=== PATIENT | male | born 1970 | race Caucasian/White ===

== ENCOUNTER 2023-09-10 06:51 | Day surgery (SDC) | payer BC, SELFPAY ==
[2023-09-06 10:16] LABS: Hematocrit 42.2 % (39.0-52.0); Hemoglobin 14.3 g/dL (13.0-18.0); Mean Corp Hgb Conc. 33.9 g/dL (33.0-37.0); Mean Corpuscular Hgb 30.9 pg (27.0-31.0); Mean Corpuscular Volume 91.1 fL (80.0-94.0); Mean Platelet Volume 11.7 fL (7.4-10.4); Platelet Count 209 10^3/uL (130-400); Red Blood Cell Count 4.63 10^6/uL (4.70-6.10); Red Cell Dist. Width 12.7 % (11.5-14.5)
[2023-09-06 11:03] LABS: Blood Urea Nitrogen 17 mg/dl (9-20); Calcium 9.2 mg/dl (8.4-10.2); Carbon Dioxide 30 mmol/L (22-30); Chloride 103 mmol/L (98-107); Glucose 87 mg/dl (70-99); Potassium 4.2 mmol/L (3.5-5.1); Sodium 136 mmol/L (135-145); eGFR > 60.00
[2023-09-06 13:17] VITALS: BMI 30.1
[2023-09-10] VITALS (10 sets, daily range): BP systolic 117–148; BP diastolic 65–80; BMI 30.1
[2023-09-10] MEDS: VANCOCIN 300 ML IV (08:38)
[2023-09-10] MEDS: NORMOSOL-R 1000 IV (08:38)
[2023-09-10] MEDS: VANCOCIN 300 MG IV (08:38)
[2023-09-10] MEDS: TYLENOL 1000 MG PO (08:38)
--- NOTE | 2023-09-10 08:53 | W.SUR.PREOP ---
Pre-Operative Surgical Note
-
I have examined this patient prior to the performance of the scheduled procedure.
The patient's condition is unchanged from the time of the current History and
Physical and the patient is able to undergo the scheduled procedure.
--- NOTE | 2023-09-10 11:17 | W.IMMPOSTOP ---
Addendum entered and electronically signed by Delmer Boyd MD 09/10/23 11:27:
#[id number]
Original Note:
Surgical Immed Post Op Note
-
Primary Surgeon: Deb
Assisting Surgeon: Cain PATEL
Pre-op Diagnosis: Bilateral inguinal hernias
Post-op Diagnosis: Bilateral inguinal hernias, indirect
Procedure Performed: Robotic assisted laparoscopic MARQUES repair of bilateral inguinal hernias with mesh; 3D max large mid weight
Anesthesia Type: GETA +0.25% Marcaine
Specimen / Cultures: None
Estimated Blood Loss: 8 mL
Complications: None immediate
Operative Findings: Bilateral indirect inguinal hernias left side larger than right. Lipoma of cord associated with right inguinal hernia reduced but not excised. 3D max large mid weight mesh repair x 2.
== END 2023-09-10 13:30 | disposition home or self-care (01) ==
LOC: SDS 06:51
PROVIDERS: ATTENDING PHYSICIAN Surgery; FAMILY PHYSICIAN Family Medicine
DX: K40.20 Bilateral inguinal hernia, without obstruction or gangrene, not specified as recurrent (principal); D17.6 Benign lipomatous neoplasm of spermatic cord
CPT/HCPCS: 49650; 36415; 80048; 85027; 93005; C1781

== ENCOUNTER 2024-06-30 20:40 | Emergency (ER) | payer BC, SELFPAY ==
[2024-06-30 20:46] VITALS: BP 159/93
[2024-06-30 21:18] LABS: % Basophils 0.7 % (0-2); % Eosinophils 2.7 % (0-6); % Immature Granulocytes 0.2 % (0-0.5); % Lymphocytes 16.3 % (20.5-51.1); % Monocytes 7.8 % (1.7-9.3); % Neutrophils 72.3 % (42.2-75.2); ALT (SGPT) 17 U/L (0-50); AST (SGOT) 23 U/L (17-59); Absolute Basophils 0.1 10^3/uL (0-0.2); Absolute Eosinophils 0.2 10^3/uL (0-0.7); Absolute Lymphocytes 1.4 10^3/uL (1.2-3.4); Absolute Monocytes 0.7 10^3/uL (0.1-0.6); Absolute Neutrophils 6.1 10^3/uL (1.4-6.5); Albumin 4.3 g/dl (3.5-5.0); Alkaline Phosphatase 55 U/L (38-126); Blood Urea Nitrogen 24 mg/dl (9-20); Calcium 9.3 mg/dl (8.4-10.2); Carbon Dioxide 30 mmol/L (22-30); Chloride 96 mmol/L (98-107); Glucose 129 mg/dl (70-99); Hematocrit 40.9 % (39.0-52.0); Hemoglobin 14.2 g/dL (13.0-18.0); Mean Corp Hgb Conc. 34.7 g/dL (33.0-37.0); Mean Corpuscular Hgb 31.6 pg (27.0-31.0); Mean Corpuscular Volume 90.9 fL (80.0-94.0); Mean Platelet Volume 10.6 fL (7.4-10.4); Nucleated Red Blood Cells % 0 % (-); Platelet Count 262 10^3/uL (130-400); Potassium 4.5 mmol/L (3.5-5.1); Sodium 135 mmol/L (135-145); Total Bilirubin 1.1 mg/dl (0.2-1.3); Total Protein 7.1 g/dl (6.3-8.2); White Blood Cell Count 8.4 10^3/uL (4.8-10.8); eGFR > 60.00
[2024-06-30 21:24] LABS: Troponin I < 0.012 ng/ml
[2024-07-01 00:10] VITALS: BMI 28.1
[2024-07-01 00:13] VITALS: BP 133/82
--- NOTE | 2024-07-01 00:30 | ED.GENMED ---
History of Present Illness
General
Chief Complaint: Chest Pain
Source: patient
Exam Limitations: none
Time Seen by Provider: 07/01/24 00:16
History of Present Illness
History of Present Illness:
54-year-old male otherwise quite healthy presents with 2 to 3 days worth pleuritic chest pain initially on the right now on the left as well. He cannot get deep breath without significant discomfort. He denies cough or hemoptysis. No recent
travel or surgery. No leg swelling or calf pain. No known injury. He denies shortness of breath. Pain is mainly way worse with breathing
Phy Exam
Physical Exam
Physical Exam:
General: Well-appearing male no acute respiratory distress
HEENT: Normocephalic atraumatic
Heart: Regular rate and rhythm
Lungs: Clear no wheeze breath sounds heard bilaterally
Abdomen: Soft nontender nondistended no guarding or rebound
Extremities: No cyanosis or edema
Skin: Warm no rash
Scores
Heart Score for Chest Pain Patients
STEMI patient?: No
History: Slightly or Non-Suspicious
ECG: Normal
Age: >45 - <65 years
Risk Factors: No Risk Factors
Troponin: </= Normal Limit
Heart Score for Chest Pain Patients: 1
Heart Score Risk: 2.5% MACE over next 6 weeks
Course
Orders/Labs/Results
Orders:
Orders
06/30/24 20:41
Electrocardiogram (*1) Urgent
Reason for Study: Chest Pain
Cardiac Monitoring- Treatment ONCE
EKG- Treatment ONCE
IV Insert/Care/Rem.- Treatment PRN
O2 Therapy [RESP] Urgent
Titrate/Wean O2 to maintain O2 sat greater than (%): 90
Special Instructions: Maintain sats >/=90%
Pulse Ox/spot Check [RESP] Urgent
Quantity: 1
Special Instructions: ON ROOM AIR
06/30/24 20:53
Complete Blood Count/With Diff Urgent
Comprehensive Metabolic Panel Urgent
Troponin I Urgent
07/01/24 00:29
CT Chest Pe Study Urgent
Comment:
Reason For Exam: pleuritic chest pain
07/01/24 01:44
HYDROmorphone [Dilaudid] 0.5 mg IV NOW STA
Abnormal Lab Results
06/30/24
20:53
RBC 4.50 L 10^6/uL
(4.70-6.10)
MCH 31.6 H pg
(27.0-31.0)
MPV 10.6 H fL
(7.4-10.4)
Absolute Monos (auto) 0.7 H 10^3/uL
(0.1-0.6)
Lymphocytes % 16.3 L %
(20.5-51.1)
Chloride 96 L mmol/L
(98-107)
BUN 24 H mg/dl
(9-20)
Glucose 129 H mg/dl
(70-99)
06/30/24 20:53
06/30/24 20:53
Vital Signs
Initial and Last Documented VS:
Initial Vital Signs
Temp Pulse Resp BP Pulse Ox
99.7 F 78 18 159/93 99
06/30/24 20:46 06/30/24 20:46 06/30/24 20:46 06/30/24 20:46 06/30/24 20:46
Last Documented Vital Signs
Temp Pulse Resp BP Pulse Ox
99.7 F 67 18 131/73 98
06/30/24 20:46 07/01/24 01:00 07/01/24 01:00 07/01/24 01:00 07/01/24 01:00
MDM/Problems Addressed
Differential Diagnosis Includes:
Pleuritic chest pain. This is atypical for ACS. EKG shows normal sinus rhythm and troponin undetectable. Not hypoxic nor tachycardic but patient does struggle to take a deep breath. Consider PE versus pneumothorax. CT of the chest pending.
*Critical Care Note
Total Time (30-74mins, 75-104mins- exclusive of procedures): Not Applicable
Update Note
Update Note:
CT chest negative for acute finding. Vital signs remained stable. Not ACS today. No evidence of PE dissection or pneumothorax on CT. Suspect possible pleurisy. Patient is in considerable pain. He is allergic to NSAIDs. Will give him a dose of
Dilaudid here and send him home with prednisone
ED Attending Note
-
Portions of this chart may have been created with voice recognition software.� Occasional wrong word or��sound alike� substitutions may have occurred due to the inherent limitations of voice recognition software.
Discharge Plan
Departure
Patient Disposition: Home (Routine Discharge)
Date of Disposition: 07/01/24
Time of Disposition: 01:48
Patient with high blood pressure during this ER visit?: No
Discharge Problem:
Chest pain
Instructions: Costochondritis (DC), Chest Pain PCP Follow Up
Prescriptions:
New
prednisone 20 mg tablet
40 mg PO DAILY 5 Days Qty: 10 0RF
No Action
acetaminophen 500 mg Tablet
1,000 mg PO QID PRN (Reason: pain)
multivitamin
2 gum PO DAILY
ibuprofen 200 mg tablet
400 - 600 mg PO Q6HPRN PRN (Reason: moderate pain) Qty: 1 0RF
polyethylene glycol 3350 [Miralax] 17 gram/dose powder
4 g PO DAILY PRN (Reason: Constipation) Qty: 119 0RF
Rx Instructions:
start a laxative such as MIRALAX on day 2 after surgery if no bowel movement yet as long as no nausea/vomiting and passing gas
oxycodone 5 mg tablet
5 mg PO Q4HPRN PRN (Reason: breakthrough/severe pain) Qty: 7 0RF
Referrals:
Richard James MD [Family Provider] -
Activity Restrictions/Additional Instructions:
Take prednisone as directed. Return if worse, otherwise follow up with PMD.
Interventions
Interventions:
*Risk Screen - Suicide Last Done: 06/30/24 20:46
*General Assessment Last Done: 06/30/24 20:46
*Neglect/Abuse Screening Last Done: 06/30/24 20:46
ED- Fall Risk Assessment Last Done: 07/01/24 00:10
*ED COVID-19 Vaccine History Last Done: 07/01/24 00:10
ED- Cardiac Assessment Last Done: 07/01/24 00:10
Discharge Date and Time
Print Language: INDONESIAN
[2024-07-01 01:00] VITALS: BP 131/73
[2024-07-01] MEDS: DILAUDID 0.5 MG IV (01:47)
[2024-07-01 02:00] VITALS: BP 98/53
== END 2024-07-01 02:07 | disposition home or self-care (01) ==
LOC: EMR 20:40
PROVIDERS: Emergency Medicine; EMERGENCY PHYSICIAN Student in an Organized Health Care Education/Training Program; FAMILY PHYSICIAN Family Medicine
DX: R07.81 Pleurodynia (principal)
CPT/HCPCS: 96374; 99284; 71275; 80053; 84484; 85025; 93005; Q9967